=== PATIENT | male | born 1970 | race Caucasian/White ===

== ENCOUNTER 2019-12-06 05:16 | Emergency (ER) | payer OTHER ==
[2019-12-06] MEDS: Nitroglycerin 0.4 MG Tab.SL SL PRN ×2 (05:49→05:55)
--- NOTE | 2019-12-06 05:49 | EDM.PDOC ---
ED HPI GENERAL MEDICAL PROBLEM - General Chief Complaint: Chest Pain Stated Complaint: chest tightness and left arm Time Seen by Provider: 12/06/19 05:38 Source of Information: Reports: Patient, Family History Limitations: Reports: No Limitations - History of Present Illness INITIAL COMMENTS - FREE TEXT/NARRATIVE: This is a 49-year-old male. Ever since he went bowling, he bowls left handed, a couple nights ago he has been having initially some shooting pain in his left chest left arm but it seems to have progressed into more of a constant aching in his left chest and down his left arm. There is also some fleeting shooting pain as well. He says this morning he woke around 4 AM and the constant pressure pain was intense. He does sleep on his left side. He has no history of neck herniation or radicular symptoms. Due to his constant pain in the left chest and left arm and he bowls left-handed he comes to the ER for evaluation. He denies any sweating denies any shortness of breath denies any nausea and vomiting. Mid-Sternal Chest Pain Score (Numeric/FACES): 10 - Related Data Allergies Allergy/AdvReac Type Severity Reaction Status Date / Time No Known Allergies Allergy Verified 12/06/19 05:23 Home Meds: Home Meds Losartan/Hydrochlorothiazide [Losartan-HCTZ 100-12.5 MG] 1 each PO DAILY [History] atorvaSTATin [Lipitor] 10 mg PO DAILY 12/06/19 [History] ED ROS GENERAL - Review of Systems Review Of Systems: See Below Constitutional: Denies: Fever, Chills HEENT: Reports: No Symptoms Respiratory: Denies: Shortness of Breath, Wheezing, Cough Cardiovascular: Reports: Chest Pain Endocrine: Reports: No Symptoms GI/Abdominal: Reports: No Symptoms. Denies: Nausea, Vomiting : Reports: No Symptoms Musculoskeletal: Reports: No Symptoms Skin: Reports: No Symptoms Neurological: Reports: No Symptoms Psychiatric: Reports: No Symptoms Hematologic/Lymphatic: Reports: No Symptoms ED EXAM, GENERAL - Physical Exam Exam: See Below Exam Limited By: No Limitations General Appearance: Alert, WD/WN, No Apparent Distress Eye Exam: Bilateral Eye: Normal Inspection Ears: Normal External Exam Nose: Normal Inspection Throat/Mouth: Normal Lips, Normal Voice, No Airway Compromise Head: Normocephalic Neck: Supple, Non-Tender, Other (Palpation along the base the neck does not reveal any tenderness and there is no tenderness in the left trapezius area) Respiratory/Chest: No Respiratory Distress, Lungs Clear, Normal Breath Sounds, Other (I am not able to reproduce any this pain in his left chest either on palpation) Cardiovascular: Regular Rate, Rhythm, No Murmur GI/Abdominal: Soft, Non-Tender Back Exam: Normal Inspection, Full Range of Motion Extremities: Normal Inspection, Normal Range of Motion, Other (He does have some mild tenderness in the supraspinatus area on palpation but I am not able to reproduce any of this dull aching or sharp pain on palpation.) Neurological: Alert, Oriented Psychiatric: Normal Affect, Normal Mood Skin Exam: Warm, Dry EKG INTERPRETATION EKG Date: 12/06/19 EKG Interpretation Comments: First EKG shows a normal sinus rhythm rate of 77 he has a suggestion of some ST changes in lead III, V1, V2 and V3 and slightly in V4. The second EKG he is noted to have definite ST depression V1 V2 V3 and V4 with corresponding ST elevation in 1 and 2 but is suggest he is having a posterior myocardial infarction. Third EKG now shows ST depression V1 V2 V3 and V4 with slight ST elevation about 1 mm in leads I and aVL and ST depression in leads II and aVF also suggesting a posterior myocardial infarction Course - Vital Signs Last Recorded V/S: Last Vital Signs Temp 97.8 F 12/06/19 05:24 Pulse 84 12/06/19 05:24 Resp 17 12/06/19 05:24 BP 152/96 H 12/06/19 05:55 Pulse Ox 97 12/06/19 05:24 - Orders/Labs/Meds Orders: Active Orders 24 hr Category Date Time Status EKG 12 Lead [EKG Documentation Completion] [RC] STAT Care 12/06/19 05:54 Active CXR [Chest 1V Frontal] [CR] Stat Exams 12/06/19 05:44 Taken Labs: Laboratory Tests 12/06/19 12/06/19 Range/Units 05:37 05:47 WBC 8.01 (4.23-9.07) K/mm3 RBC 5.44 (4.63-6.08) M/mm3 Hgb 15.3 (13.7-17.5) gm/dl Hct 44.7 (40.1-51.0) % MCV 82.2 (79.0-92.2) fl MCH 28.1 (25.7-32.2) pg MCHC 34.2 (32.2-35.5) g/dl RDW Std Deviation 42.8 (35.1-43.9) fL Plt Count 198 (163-337) K/mm3 MPV 10.4 (9.4-12.3) fl Neut % (Auto) 55.1 (34.0-67.9) % Lymph % (Auto) 33.0 (21.8-53.1) % [place] % (Auto) 10.1 (5.3-12.2) % Eos % (Auto) 1.7 (0.8-7.0) Baso % (Auto) 0.1 (0.1-1.2) % Neut # (Auto) 4.41 (1.78-5.38) K/mm3 Lymph # (Auto) 2.64 (1.32-3.57) K/mm3 [place] # (Auto) 0.81 (0.30-0.82) K/mm3 Eos # (Auto) 0.14 (0.04-0.54) K/mm3 Baso # (Auto) 0.01 (0.01-0.08) K/mm3 Sodium 145 (136-145) mEq/L Potassium 3.7 (3.5-5.1) mEq/L Chloride 105 (98-107) mEq/L Carbon Dioxide 27 (21-32) mEq/L Anion Gap 16.7 H (5-15) BUN 22 H (7-18) mg/dL Creatinine 1.1 (0.7-1.3) mg/dL Est Cr Clr Drug Dosing 84.80 mL/min Estimated GFR (MDRD) > 60 (>60) mL/min BUN/Creatinine Ratio 20.0 H (14-18) Glucose 112 H (74-106) mg/dL Calcium 9.2 (8.5-10.1) mg/dL Total Bilirubin 0.4 (0.2-1.0) mg/dL AST 27 (15-37) U/L ALT 42 (16-63) U/L Alkaline Phosphatase 72 (46-116) U/L Troponin I 0.583 H* (0.00-0.056) ng/mL Total Protein 8.0 (6.4-8.2) g/dl Albumin 4.4 (3.4-5.0) g/dl Globulin 3.6 gm/dL Albumin/Globulin Ratio 1.2 (1-2) Meds: Medications Discontinued Medications Generic Name Dose Route Start Last Admin Trade Name Radha PRN Reason Stop Dose Admin Aspirin Confirm 12/06/19 06:15 12/06/19 06:28 Aspirin Administered 12/06/19 06:16 Not Given Dose 324 mg .ROUTE .STK-MED ONE Aspirin 324 mg 12/06/19 06:18 12/06/19 06:19 Aspirin PO 12/06/19 06:19 324 mg ONETIME ONE Administration Atropine Sulfate Confirm 12/06/19 06:02 12/06/19 06:09 Atropine 0.1 Mg/Ml Administered 12/06/19 06:03 Not Given Dose 1 mg .ROUTE .STK-MED ONE Atropine Sulfate 1 mg 12/06/19 06:08 12/06/19 06:10 Atropine 0.1 Mg/Ml IVPUSH 12/06/19 06:09 1 mg ONETIME ONE Administration Heparin Sodium (Porcine) Confirm 12/06/19 06:15 12/06/19 06:28 Heparin Sodium Administered 12/06/19 06:16 Not Given Dose 5,000 units .ROUTE .STK-MED ONE Heparin Sodium (Porcine) 4,000 units 12/06/19 06:27 12/06/19 06:30 Heparin Sodium IVPUSH 12/06/19 06:28 4,000 units .BOLUS ONE Administration Sodium Chloride Confirm 12/06/19 06:03 12/06/19 06:09 Normal Saline Administered 12/06/19 06:04 Not Given Dose 1,000 mls @ as directed .ROUTE .STK-MED ONE Sodium Chloride 1,000 mls @ 999 mls/hr 12/06/19 06:08 12/06/19 06:05 Normal Saline IV 12/06/19 07:08 999 mls/hr ONETIME ONE Administration Heparin Sodium/Dextrose Confirm 12/06/19 06:16 12/06/19 06:28 Heparin 25,000 Units In D5w 500 Ml Administered 12/06/19 06:17 Not Given Dose 500 mls @ as directed .ROUTE .STK-MED ONE Heparin Sodium/Dextrose 25,000 units in 500 mls @ 20 mls/hr 12/06/19 06:30 06:30 Heparin 25,000 Units In D5w 500 Ml IV 1,000 units/hr TITRATE BEATRIZ 20 mls/hr Administration Protocol 1,000 UNITS/HR Morphine Sulfate 1 mg 12/06/19 06:43 12/06/19 06:46 Morphine IVPUSH 12/06/19 06:44 1 mg ONETIME ONE Administration Nitroglycerin 0.4 mg 12/06/19 05:43 12/06/19 05:55 Nitrostat SL 0.4 mg Q5M PRN Administration Chest Pain - Radiology Interpretation Free Text/Narrative:: Chest x-ray did not show a significantly widened mediastinum and the lung nicolas appear to be clear - Re-Assessments/Exams Free Text/Narrative Re-Assessment/Exam: 12/06/19 06:27 As the patient was complaining of chest pressure down the left arm we gave him a single nitroglycerin and it seemed to help his chest pain slightly we gave him the second nitroglycerin and suddenly he bradycardia down to 30 bpm and his blood pressure dropped down to 81/50. He became diaphoretic and lightheaded but his chest pain and arm pain resolved. We immediately gave him some atropine and brought his pulse back up and started fluids and his blood pressures come back up to 130 over and 95 and pulse of 96. His chest pain is still resolved. The question is whether or not he might have a small dissection. His second EKG suggested a posterior AR because he had severe ST depression in leads V1 through V3. But he did not have the corresponding ST elevation in leads I and II. We then repeated a third EKG each after his blood pressure came up and he was still pain-free it continues to show the ST depression V1 through V3 and now lead III shows ST depression as well as aVF and now is developing some mild ST elevation in leads I and aVL. ST elevation is about [address] Laguna regarding the patient's presentation and response to nitroglycerin as well as his EKG changes. He is slightly concerned about a aortic dissection. But since the patient is pain-free at this point and suggesting a posterior AR he did not think that TPA was appropriate since it is not clear-cut and we frayed if he has a small dissection that this would make it worse. But he does want some heparin started the patient is already gotten the aspirin. Did get the helicopter to fly the patient down to [place] but the visibility is too low and he is going to have to go by ground. 12/06/19 06:40 The patient still remains pain-free. Because the cloud ceiling is low we cannot fly the patient so is going to have to go by ground ambulance. I did call [facility] call again and letting the person know that the troponin is 0.583. That is thirdEKG does suggest a posterior AR and he is developing the ST elevation in leads I and aVL and also the ST depression in leads III and aVF along with the obvious ST depression and V1 through V4. If Dr. Laguna wants to do anything different than they will give me a call. Departure - Departure Time of Disposition: 07:10 Disposition: DC/Tfer to Psych Hosp/Unit [facility] Reason for Transfer *Q: Other (This is a psych transfer) Clinical Impression: Acute AR, true posterior wall, initial episode of care, Bradycardia Chest pain Qualifiers: Chest pain type: chest pain due to myocardial ischemia Ischemic chest pain type : unspecified angina pectoris type Qualified Code(s): I25.9 - Chronic ischemic heart disease, unspecified Adverse drug reaction Qualifiers: Encounter type: initial encounter Qualified Code(s): T50.905A - Adverse effect of unspecified drugs, medicaments and biological substances, initial encounter Hypotension Qualifiers: Hypotension type: other hypotension type Qualified Code(s): I95.89 - Other hypotension Referrals: PCP,Not In Area [Primary Care Provider] - Critical Care Note - Critical Care Note Total Time (mins): 20 Comments: This was due to an adverse reaction to nitroglycerin that caused him to be hypotensive and a bradycardic. Sepsis Event Note - Evaluation Sepsis Screening Result: No Definite Risk - Focused Exam Vital Signs: Vital Signs Temp Pulse Resp BP BP Pulse Ox 12/06/19 05:55 152/96 H 12/06/19 05:49 181/121 H 12/06/19 05:24 97.8 F 84 17 178/127 H 97 Date Exam was Performed: 12/06/19 Time Exam was Performed: 08:09 ED Communication - ED Communication Date/Time Date: 12/06/19 Time Called: 06:32 - Discussed Case With (1) Discussed Case With (1): Admitting Provider Person/s Notified (1): Dr. Laguna (He agrees to accept the patient in transport for further evaluation and treatment) - My Orders Last 24 Hours: My Active Orders 12/06/19 05:44 CXR [Chest 1V Frontal] [CR] Stat 12/06/19 05:54 EKG 12 Lead [EKG Documentation Completion] [RC] STAT - Assessment/Plan Last 24 Hours: My Active Orders 12/06/19 05:44 CXR [Chest 1V Frontal] [CR] Stat 12/06/19 05:54 EKG 12 Lead [EKG Documentation Completion] [RC] STAT
[2019-12-06] MEDS ORDERED: Atropine 0.1 MG/ML 10 ML Syringe ONE (06:02)
[2019-12-06] MEDS ORDERED: Sodium Chloride 0.9% 1,000 ML ONE (06:03)
[2019-12-06] MEDS ORDERED: Atropine 0.1 MG/ML 10 ML Syringe IVPUSH ONE (06:08)
[2019-12-06] MEDS ORDERED: Sodium Chloride 0.9% 1,000 ML IV ONE (06:08)
[2019-12-06] MEDS ORDERED: Aspirin 81 MG Tab.Chew ONE (06:15)
[2019-12-06] MEDS ORDERED: Heparin Sodium 5,000 Units/ML Vial ONE (06:15)
[2019-12-06] MEDS ORDERED: Heparin Sodium/D5W 500 ML ONE (06:16)
[2019-12-06] MEDS ORDERED: Aspirin 81 MG Tab.Chew PO ONE (06:18)
[2019-12-06] MEDS ORDERED: Heparin Sodium 5,000 Units/ML Vial IVPUSH ONE (06:27)
[2019-12-06] MEDS ORDERED: Heparin Sodium/D5W 25,000 UNITS/500 ML BAG IV SCH (06:30)
[2019-12-06] MEDS ORDERED: Morphine 2 MG/ML Syringe IVPUSH ONE (06:43)
--- NOTE | 2019-12-06 13:49 | CR ---
Chest: Portable view of the chest was obtained. Comparison: No prior chest x-ray is available. Heart size and mediastinum are normal. Lungs are clear with no acute parenchymal change. Bony structures are grossly intact. Impression: 1. Nothing acute is appreciated on portable chest x-ray. Diagnostic code #1 This report was dictated in [place] Standard Time
== END 2019-12-06 06:58 ==
LOC: JD.ED 05:16
DX: I21.29 ST elevation (STEMI) myocardial infarction involving other sites (principal); I95.89 Other hypotension; T50.905A Adverse effect of unspecified drugs, medicaments and biological substances, initial encounter; Z79.899 Other long term (current) drug therapy
CPT/HCPCS: 36415; 71045; 80053; 84484; 85025; 93005; 96365; 96375; 99285; A9270; J0461; J1644; J2270; J7030; 93010